=== PATIENT | male | born 1970 | race Caucasian/White ===

== ENCOUNTER → 2018-04-11 | Emergency (ER) | payer MEDICAID ==
[~2018-04-11] VITALS: Ht 170.2 cm; Wt 102.1 kg
[~2018-04-11] MED LIST: ALLOPURINOL 10100 M2 PO; DOXYCYCLINE 10100 MG PO; FLEXERIL PO; GEMFIBROZIL 60600 MG PO; HYDROCODONE-AP1 EAC6 PO; KEFLEX500 M1 PO; LANTUS100 UNIT/M SUBQ; LEVOTHYROXINE0.05 MG PO; METFORMIN HCL500 MG PO; MINOCIN100 MG PO; NEXIUM40 MG PO; NORCO 5-325 TA1 EAC1 PO; NORCO 5-325 TA1 EACH PO; NOVOLOG100 UNIT/1 SUBQ; OXYCODONE HCL 55 MG PO; OXYCONTIN10 M1 PO; PRINIVIL20 MG PO; ZANTAC 150MG T150 MG PO; ZOFRAN4 MG PO
[2018-04-11 12:12] VITALS: BP 131/74
== END ==
LOC: M.ERS 12:02
DX: L02.413 Cutaneous abscess of right upper limb (principal); I10 Essential (primary) hypertension; E11.9 Type 2 diabetes mellitus without complications; M10.9 Gout, unspecified; E07.9 Disorder of thyroid, unspecified; Z88.6 Allergy status to analgesic agent; Z88.8 Allergy status to other drugs, medicaments and biological substances; Z90.49 Acquired absence of other specified parts of digestive tract; Z79.4 Long term (current) use of insulin

== ENCOUNTER 2019-02-12 18:09 | Emergency (ER) | payer MEDICAID ==
[~2019-02-12] VITALS: Ht 170.2 cm; Wt 102.1 kg
[2019-02-12] MEDS ORDERED: NORCO 5-325 TA1 EAC1 PO (19:05)
[2019-02-12] MEDS ORDERED: ZANAFLEX4 MG PO (19:05)
[2019-02-12] MEDS ORDERED: NABUMETONE 750750 M1 PO (19:05)
[2019-02-12 19:40] VITALS: BP 125/78
== END 2019-02-12 19:41 | disposition home or self-care (01) ==
LOC: M.ERS 18:09
DX: S16.1XXA Strain of muscle, fascia and tendon at neck level, initial encounter (principal); E11.9 Type 2 diabetes mellitus without complications; I10 Essential (primary) hypertension; M10.9 Gout, unspecified; Z90.49 Acquired absence of other specified parts of digestive tract; Z96.652 Presence of left artificial knee joint; Z79.899 Other long term (current) drug therapy; Z88.5 Allergy status to narcotic agent; Z88.8 Allergy status to other drugs, medicaments and biological substances; X50.0XXA Overexertion from strenuous movement or load, initial encounter; Y93.89 Activity, other specified; Y92.89 Other specified places as the place of occurrence of the external cause; Y99.8 Other external cause status

== ENCOUNTER 2019-04-04 01:16 | Emergency (ER) | payer MEDICAID ==
[~2019-04-04] VITALS: Ht 170.2 cm; Wt 104.3 kg
[~2019-04-04 01:16] MED LIST changes: +NABUMETONE 750750 M1 PO; +ZANAFLEX4 MG PO
[2019-04-04] MEDS ORDERED: KEFLEX500 M1 PO (01:29)
[2019-04-04] MEDS ORDERED: PREDNISONE 20 M20 M1 PO (01:29)
[2019-04-04 01:35] VITALS: BP 162/81
== END 2019-04-04 01:37 | disposition home or self-care (01) ==
LOC: M.ERS 01:16
DX: S90.562A Insect bite (nonvenomous), left ankle, initial encounter (principal); S90.561A Insect bite (nonvenomous), right ankle, initial encounter; E11.9 Type 2 diabetes mellitus without complications; I10 Essential (primary) hypertension; E78.00 Pure hypercholesterolemia, unspecified; Z88.2 Allergy status to sulfonamides; Z88.1 Allergy status to other antibiotic agents; Z88.6 Allergy status to analgesic agent; Z90.49 Acquired absence of other specified parts of digestive tract; Z98.890 Other specified postprocedural states; Z96.652 Presence of left artificial knee joint; M10.9 Gout, unspecified; W57.XXXA Bitten or stung by nonvenomous insect and other nonvenomous arthropods, initial encounter; Y93.89 Activity, other specified; Y92.89 Other specified places as the place of occurrence of the external cause; Y99.8 Other external cause status

== ENCOUNTER 2019-06-28 16:21 | Emergency (ER) | payer MEDICAID ==
[~2019-06-28] VITALS: Ht 170.2 cm; Wt 108.4 kg
[~2019-06-28 16:21] MED LIST changes: +PREDNISONE 20 M20 M1 PO
[2019-06-28] MEDS ORDERED: CELEXA 20 MG TA20 MG PO (16:34)
[2019-06-28] MEDS ORDERED: MITIGARE0.6 MG PO (16:34)
[2019-06-28] MEDS ORDERED: ALLOPURINOL 10100 M1 PO (16:34)
[2019-06-28] MEDS ORDERED: NEURONTIN100 MG PO (16:35)
[2019-06-28] MEDS ORDERED: GEMFIBROZIL 60600 MG PO (16:35)
[2019-06-28] MEDS ORDERED: IBUPROFEN 800800 M1 PO (16:36)
[2019-06-28] MEDS ORDERED: LEVO-T100 MCG PO (16:36)
[2019-06-28] MEDS ORDERED: FISH OIL 1,001000 M3 PO (16:37)
[2019-06-28] MEDS ORDERED: LYSIPLEX PLUS1 EACH PO (16:37)
[2019-06-28] MEDS ORDERED: METFORMIN HCL500 M3 PO (16:37)
[2019-06-28] MEDS ORDERED: JANUVIA 50 MG T50 M1 PO (16:38)
[2019-06-28] MEDS ORDERED: AFRIN15 ML NS (16:46)
[2019-06-28] MEDS ORDERED: AMOXICILLIN 50500 MG PO (16:46)
[2019-06-28] MEDS ORDERED: TYLENOL WITH CO1 TA1 PO (16:46)
[2019-06-28] MEDS ORDERED: CLARITIN10 MG PO (16:46)
[2019-06-28 16:53] VITALS: BP 159/103
== END 2019-06-28 16:55 | disposition home or self-care (01) ==
LOC: M.ERS 16:21
DX: J32.9 Chronic sinusitis, unspecified (principal); I10 Essential (primary) hypertension; E11.9 Type 2 diabetes mellitus without complications; M10.9 Gout, unspecified; Z90.49 Acquired absence of other specified parts of digestive tract; Z90.89 Acquired absence of other organs; Z96.652 Presence of left artificial knee joint; Z79.4 Long term (current) use of insulin; Z88.2 Allergy status to sulfonamides; Z88.8 Allergy status to other drugs, medicaments and biological substances

== ENCOUNTER 2019-08-06 19:14 | Emergency (ER) | payer MEDICAID ==
[~2019-08-06] VITALS: Ht 170.2 cm; Wt 107.5 kg
[~2019-08-06 19:14] MED LIST changes: +AFRIN15 ML NS; +ALLOPURINOL 10100 M1 PO; +AMOXICILLIN 50500 MG PO; +CELEXA 20 MG TA20 MG PO; +CLARITIN10 MG PO; +FISH OIL 1,001000 M3 PO; +IBUPROFEN 800800 M1 PO; +JANUVIA 50 MG T50 M1 PO; +LEVO-T100 MCG PO; +LYSIPLEX PLUS1 EACH PO; +METFORMIN HCL500 M3 PO; +MITIGARE0.6 MG PO; +NEURONTIN100 MG PO; +TYLENOL WITH CO1 TA1 PO
[2019-08-06] MEDS ORDERED: PREDNISONE50 MG PO (19:42)
[2019-08-06] MEDS ORDERED: FLONASE 0.05%50 MCG NARES (19:42)
[2019-08-06] MEDS ORDERED: HYDROCODON-ACE1 EAC8 PO (19:42)
[2019-08-06] MEDS ORDERED: ERYTHROMYCIN E3.5 G3 OPHTHALMIC (19:42)
[2019-08-06 19:59] VITALS: BP 138/78
== END 2019-08-06 20:00 | disposition home or self-care (01) ==
LOC: M.ERS 19:14
DX: H92.03 Otalgia, bilateral (principal); E11.9 Type 2 diabetes mellitus without complications; M10.9 Gout, unspecified; I10 Essential (primary) hypertension; Z88.2 Allergy status to sulfonamides; Z88.1 Allergy status to other antibiotic agents; Z88.6 Allergy status to analgesic agent; Z90.49 Acquired absence of other specified parts of digestive tract; Z96.652 Presence of left artificial knee joint; Z79.4 Long term (current) use of insulin

== ENCOUNTER 2020-11-28 15:36 | Emergency (ER) | payer MEDICAID ==
[~2020-11-28] VITALS: Ht 170.2 cm; Wt 102.1 kg
[~2020-11-28 15:36] MED LIST changes: +ERYTHROMYCIN E3.5 G3 OPHTHALMIC; +FLONASE 0.05%50 MCG NARES; +HYDROCODON-ACE1 EAC8 PO; +PREDNISONE50 MG PO
[2020-11-28] MEDS ORDERED: HYDROCODON-ACE1 EAC7 PO (17:05)
[2020-11-28 17:06] VITALS: BP 132/87
--- NOTE | 2020-12-01 13:44 | EKG ---
[place] [address] ELECTROCARDIOGRAM REPORT Name: VENTURADANYELL RANI Room: [facility]#: [id number] Admission: 11/28/20 Attend Phys: Discharge: 11/28/20 Date of : 68 Date of Service: 11/28/20 1641 Report #: [id number] THIS REPORT FOR: //name// [facility] ED Test Date: 2020-11-28 Test Time: 16:41:12 Pat Name: DANYELL VENTURA Department: Room: Gender: Senior Hris Analyst: : 1970 Requested By: Latha Duran Order Number: [id number] MD: Jose Mcdonald Measurements Intervals Wood Rate: 69 P: 30 ND: 156 QRS: 32 QRSD: 110 T: 67 QT: 414 QTc: 444 Interpretive Statements Sinus rhythm Compared to ECG 02/05/2017 15:03:17 No significant changes Electronically Signed On 12-01-2020 13:44:27 CDT by Jose Mcdonald [email or web address] <ELECTRONICALLY SIGNED> By: Jose Mcdonald MD, [facility] 12/01/20 1344 40 40 Jose Mcdonald MD, FAC /EPI
== END 2020-11-28 17:07 | disposition home or self-care (01) ==
LOC: M.ERS 15:36
DX: S46.912A Strain of unspecified muscle, fascia and tendon at shoulder and upper arm level, left arm, initial encounter (principal); E11.9 Type 2 diabetes mellitus without complications; I10 Essential (primary) hypertension; E03.9 Hypothyroidism, unspecified; Z90.89 Acquired absence of other organs; Z90.49 Acquired absence of other specified parts of digestive tract; Z98.890 Other specified postprocedural states; Z96.652 Presence of left artificial knee joint; Z79.899 Other long term (current) drug therapy; Z79.2 Long term (current) use of antibiotics; Z79.4 Long term (current) use of insulin; Z88.2 Allergy status to sulfonamides; Z88.8 Allergy status to other drugs, medicaments and biological substances; X50.0XXA Overexertion from strenuous movement or load, initial encounter; Y93.89 Activity, other specified; Y92.89 Other specified places as the place of occurrence of the external cause; Y99.8 Other external cause status

== ENCOUNTER 2020-12-30 15:18 | Emergency (ER) | payer MEDICAID ==
[~2020-12-30] VITALS: Ht 170.2 cm; Wt 99.8 kg
[~2020-12-30 15:18] MED LIST changes: +HYDROCODON-ACE1 EAC7 PO
[2020-12-30] MEDS ORDERED: ERYTHROMYCIN E3.5 G3 OPHTHALMIC (15:35)
[2020-12-30] MEDS ORDERED: NABUMETONE 750750 M1 PO (15:35)
[2020-12-30 15:43] VITALS: BP 127/76
== END 2020-12-30 15:44 | disposition home or self-care (01) ==
LOC: M.ERS 15:18
DX: H10.33 Unspecified acute conjunctivitis, bilateral (principal); I10 Essential (primary) hypertension; E78.00 Pure hypercholesterolemia, unspecified; E03.9 Hypothyroidism, unspecified; Z79.899 Other long term (current) drug therapy; E11.9 Type 2 diabetes mellitus without complications; Z88.2 Allergy status to sulfonamides; Z88.1 Allergy status to other antibiotic agents; Z88.6 Allergy status to analgesic agent; Z79.2 Long term (current) use of antibiotics; Z79.4 Long term (current) use of insulin

== ENCOUNTER 2021-01-26 16:26 | Emergency (ER) | payer MEDICAID ==
[~2021-01-26] VITALS: Ht 170.2 cm; Wt 99.8 kg
[2021-01-26] MEDS ORDERED: FLONASE 0.05%50 MCG NASAL (17:10)
[2021-01-26 17:17] VITALS: BP 110/68
== END 2021-01-26 17:12 | disposition home or self-care (01) ==
LOC: M.ERS 16:26
DX: H92.03 Otalgia, bilateral (principal); E11.9 Type 2 diabetes mellitus without complications; I10 Essential (primary) hypertension; E03.9 Hypothyroidism, unspecified; Z90.49 Acquired absence of other specified parts of digestive tract; Z90.89 Acquired absence of other organs; Z79.899 Other long term (current) drug therapy; Z88.2 Allergy status to sulfonamides; Z88.6 Allergy status to analgesic agent; Z79.4 Long term (current) use of insulin

== ENCOUNTER 2021-03-10 18:34 | Emergency (ER) | payer MEDICAID ==
[~2021-03-10] VITALS: Ht 170.2 cm; Wt 99.8 kg
[~2021-03-10 18:34] MED LIST changes: +FLONASE 0.05%50 MCG NASAL
[2021-03-10] MEDS ORDERED: LIPITOR10 MG PO (18:46)
[2021-03-10 18:50] VITALS: BP 121/76
[2021-03-10] MEDS ORDERED: CEPHALEXIN500 MG PO (19:03)
[2021-03-10] MEDS ORDERED: IBUPROFEN 800800 M1 PO (19:03)
[2021-03-10] MEDS ORDERED: CIPROFLOXIN HC2.5 M1 OPHTHALMIC (19:03)
== END 2021-03-10 19:44 | disposition home or self-care (01) ==
LOC: M.ERS 18:34
DX: H00.033 Abscess of eyelid right eye, unspecified eyelid (principal); H10.33 Unspecified acute conjunctivitis, bilateral; I10 Essential (primary) hypertension; E11.9 Type 2 diabetes mellitus without complications; E03.9 Hypothyroidism, unspecified; Z90.49 Acquired absence of other specified parts of digestive tract; Z90.89 Acquired absence of other organs; Z96.652 Presence of left artificial knee joint; Z79.4 Long term (current) use of insulin; Z79.899 Other long term (current) drug therapy; Z88.2 Allergy status to sulfonamides; Z88.8 Allergy status to other drugs, medicaments and biological substances